=== PATIENT | male | born 1990 | race Caucasian/White ===

== ENCOUNTER → 2019-04-01 | Outpatient (CLI) | payer BC ==
--- NOTE | 2019-04-01 16:33 | Diagnostic Imaging Report ---
INDICATION: Right shoulder pain. AP and oblique views of the right shoulder are obtained. No fracture or acute bony abnormality is seen. There is no dislocation. AC joint and glenohumeral joint appear unremarkable. IMPRESSION: Negative right shoulder. Dictated by: Dictated on workstation # [id number]
== END ==
LOC: RAD 14:21
PROVIDERS: ATTEND Pediatrics
DX: M25.511 Pain in right shoulder (principal)
CPT/HCPCS: 73030